=== PATIENT | male | born 1970 | race Caucasian/White ===

== ENCOUNTER → 2019-10-25 | Day surgery (SDC) | payer OTHER ==
[~2019-10-25] MED LIST: ACETAMINOPHEN 325 MG TABLET PO PRN; ALBUTEROL SULFATE 2.5 MG/3 ML NEBU. NEB PRN; ALLO300T PO; ATOR40TA59 PO; ATROPINE 0.5 MG/5 ML DISP.SYRIN. IV PRN; GLUC-11 PO; IV RINGERS SOLUTION,LACTATED 1,000 ML IV SCH; LEVO125T5 PO; LISI10TA2 PO; ONDANSETRON PF 4 MG/2 ML VIAL. IV PRN; PROPOFOL 40 ML IV ONE; diphenhydrAMINE 50 MG/ML VIAL IV PRN
[2019-10-25 08:46] VITALS: BP 105/67
--- NOTE | 2019-10-26 15:07 | PATHOLOGY ---
[facility] Accession Number: [id number] . 01 Material submitted: . PART A: colon - 100CM COLON POLYP PART B: rectum - RECTAL POLYP . 01 Clinical history: . None provided . 02 Diagnosis: A. Colon biopsy, colon polyp at 100 cm: - Diminutive tubular adenoma. . B. Colorectal biopsy, rectal polyp: - Hyperplastic polyp. . (JPM:garret; 10/26/2019) S 10/26/2019 0834 Local . 02 Comment: There is no high grade dysplasia or evidence of malignancy. (JPM:garret; 10/26/2019) . 02 Electronically signed: . Vinayak Espitia MD, Pathologist NPI- [id number] . 01 Gross description: . A. The specimen is received in formalin, labeled "Sabino Howard, 100 cm colon polyp". Received is a segment of pale de la o soft tissue measuring 0.4 cm in maximum dimensions. The specimen is submitted entirely in cassette A1. . B. The specimen is received in formalin, labeled "Sabino Manjarrezenberger, rectal polyp". Received is a segment of pale de la o soft tissue measuring 0.4 cm in maximum dimensions. The specimen is submitted entirely in cassette B1. (CAA; 10/25/2019) QAC/QAC 10/26/2019 0833 Local . 02 Pathologist provided ICD-10: D12.6, K62.1 . 02 CPT . 924744, 362429 Specimen Comment: A courtesy copy of this report has been sent to [phone], [phone] Specimen Comment: [phone] Specimen Comment: Report sent to / DR VOSS Performed at: [address], [place], [place] [id number] MD Jair Coffman MD Phone: [phone] Performed at: [address] [id number] MD Vinayak Espitia MD Phone: [phone]
== END ==
LOC: SURG 07:22
PROVIDERS: ATTEND Surgery
DX: Z12.11 Encounter for screening for malignant neoplasm of colon (principal); D12.3 Benign neoplasm of transverse colon; K62.1 Rectal polyp; K21.9 Gastro-esophageal reflux disease without esophagitis; I10 Essential (primary) hypertension; E03.9 Hypothyroidism, unspecified; M10.9 Gout, unspecified; Z88.5 Allergy status to narcotic agent; Z98.890 Other specified postprocedural states; Z87.891 Personal history of nicotine dependence
CPT/HCPCS: 45380; 88305; J2704; J7120